=== PATIENT | female | born 1980 | race Two or more races ===

== ENCOUNTER 2016-09-21 12:02 | Emergency (ER) | payer BC, OTHER ==
[~2016-09-21] VITALS: Ht 152.4 cm; Wt 79.8 kg
[2016-09-21] MEDS ORDERED: HYDROCODONE/APAP 5-325MG TABLET PO ONE (12:45)
[2016-09-21] MEDS ORDERED: IBUPROFEN 200 MG TABLET PO ONE (12:45)
[2016-09-21] MEDS ORDERED: IBUPROFEN 600 MG TABLET ONE (13:05)
[2016-09-21] MEDS ORDERED: HYDROCODONE/APAP 5-325MG TABLET ONE (13:06)
--- NOTE | 2016-09-21 13:08 | NUR ---
Patient discharged to home in stable conditon. Written and verbal after care instructions given. Patient verbalizes understanding of instructions.pt walks in steady gait. pt with so. pt not driving
== END 2016-09-21 13:12 | disposition home or self-care (01) ==
LOC: ER 12:02
DX: M54.5 Low back pain (principal)
CPT/HCPCS: 99283; A4663

== ENCOUNTER 2017-08-24 07:27 | Outpatient (CLI) | payer BC, OTHER ==
[2017-08-25 08:34] LABS: BASOPHILS # (AUTO) 0.1 K/uL (0.0-8.0); BASOPHILS % (AUTO) 1.1 % (0.0-2.0); EOSINOPHILS # (AUTO) 0.3 K/uL (0.0-0.7); EOSINOPHILS % (AUTO) 3.8 % (0.0-7.0); HEMATOCRIT 38.8 % (31.2-41.9); LYMPHOCYTES # (AUTO) 2.5 K/uL (20.0-40.0); MEAN CORPUSCULAR HEMOGLOBIN 30.6 uug (24.7-32.8); MEAN CORPUSCULAR HGB CONC 36 g/dL (32.3-35.6); MEAN CORPUSCULAR VOLUME 84.7 fL (75.5-95.3); MONOCYTES # (AUTO) 0.3 K/uL (2.0-10.0); MONOCYTES % (AUTO) 4.5 % (0.0-11.0); NEUTROPHILS # (AUTO) 4.1 K/uL (1.8-8.9); NEUTROPHILS % (AUTO) 56.6 % (38.5-71.5); PLATELET COUNT (AUTO) 236 K/uL (179-408); RED BLOOD CELL COUNT(AUTO) 4.58 MIL/uL (3.63-4.92); WHITE BLOOD COUNT (AUTO) 7.3 K/uL (3.8-11.8)
[2017-08-25 08:58] LABS: BILIRUBIN,TOTAL 0.2 mg/dL (0.2-1.0); CREATININE 0.7 mg/dL (0.6-1.3); POTASSIUM 3.8 mmol/L (3.5-5.1); TOTAL PROTEIN, SERUM 7.8 g/dL (6.4-8.2)
[2017-08-25 09:04] LABS: THYROID STIMULATING HORMONE 2.611 mIU/mL (0.358-3.740)
[2017-08-26 12:07] LABS: FOLLICLE STIMULATION HORMONE 9.3 mIU/mL (.); PROLACTIN 45.9 ng/mL (4.8-23.3)
== END 2017-08-24 23:59 | disposition home or self-care (01) ==
LOC: LAB 07:27
PROVIDERS: ATTEND Family Medicine
DX: Z12.4 Encounter for screening for malignant neoplasm of cervix (principal); Z11.3 Encounter for screening for infections with a predominantly sexual mode of transmission; R94.7 Abnormal results of other endocrine function studies
CPT/HCPCS: 36415; 76856; 83001; 84146; 84443; 85025; 86592; 86803; 87806

== ENCOUNTER 2017-08-25 07:36 | Outpatient (CLI) | payer BC, OTHER | END 2017-08-25 23:59 | disposition home or self-care (01) | LOC: RAD 07:36 | PROVIDERS: ATTEND Family Medicine | DX: N91.2 Amenorrhea, unspecified (principal) | CPT/HCPCS: 76856 ==

== ENCOUNTER 2019-02-15 07:07 | Outpatient (CLI) | payer BC, OTHER ==
[2019-02-15 07:54] LABS: CREATININE 0.7 mg/dL (0.6-1.3)
== END 2019-02-15 23:59 | disposition home or self-care (01) ==
LOC: LAB 07:07
PROVIDERS: ATTEND Family Medicine
DX: R89.1 Abnormal level of hormones in specimens from other organs, systems and tissues (principal)
CPT/HCPCS: 36415; 84520

== ENCOUNTER 2019-11-08 04:17 | Outpatient (CLI) | payer BC, OTHER | END 2019-11-08 23:59 | disposition home or self-care (01) | LOC: LAB 04:17 | PROVIDERS: ATTEND Family Medicine | DX: N39.0 Urinary tract infection, site not specified (principal); Z11.3 Encounter for screening for infections with a predominantly sexual mode of transmission | CPT/HCPCS: 36415; 86592; 87086; 87806 ==